=== PATIENT | male | born 1980 ===

== ENCOUNTER 2023-03-12 15:13 | Emergency (ER) | payer SELFPAY ==
[2023-03-12 15:32] VITALS: BP 129/73; PULSE 129; RESP 16; TEMP 37.1; O2SAT 94; BMI 29.1
--- NOTE | 2023-03-12 15:43 | XRR_ITS ---
PROCEDURE INFORMATION: Exam: XR Chest Exam date and time: 03/12/2023 4:13 PM Age: 42 years old Clinical indication: Patient HX: Dyspnea; Cough TECHNIQUE: Imaging protocol: Radiologic exam of the chest. Views: 1 view. COMPARISON: No relevant prior studies available. FINDINGS: Lungs: Irregular opacities in the left lung base medially. Pleural spaces: Unremarkable. No pleural effusion. No pneumothorax. Heart/Mediastinum: Unremarkable. No cardiomegaly. Bones/joints: Unremarkable. XR/XR chest 1V portable [id number] IMPRESSION: Irregular opacities in the left lung base medially.
[2023-03-12 15:53] LABS: Basophils % 0.3 %; Eosinophils % 0.1 %; Hematocrit 46.2 % (37-53); Lymphocytes # 0.5 10^3/uL (0.8-4.8); Lymphocytes % 7.3 %; Mean Corpuscular HGB Conc 35.7 g/dL (30-55); Mean Corpuscular Hemoglobin 30.3 pg (27-33); Mean Corpuscular Volume 84.8 fl (82-101); Mean Platelet Volume 9.9 fL (7.4-10.4); Monocytes # 0.6 10^3/uL (0.2-0.9); Monocytes % 7.5 %; Neutrophils # 6.18 10^3/uL (1.8-7.7); Neutrophils % 84.5 %; Nucleated Red Blood Cells % 0 %; Platelet Count 170 10^3/cmm (157-399); Red Blood Count 5.45 10^6/uL (3.85-5.65); Red Cell Distribution Width 11.9 % (12.1-15.1); White Blood Count 7.31 10^3/uL (3.29-11.43)
--- NOTE | 2023-03-12 15:59 | ED_ITS ---
HPI - COVID 2 General: Chief Complaint: COVID symptoms Stated Complaint: Weakness Time Seen by Provider: 03/12/23 15:39 Source: patient Mode of arrival: ambulatory Triage information: Has fever, cough or shortness of breath . History of Present Illness: 42-year-old male presents emergency room complaint that his dizziness cough and congestion cough nonproductive denies any dysuria urgency or frequency denies any abdominal pain. No chest pain. MD complaint: has COVID symptoms COVID 19 common symptoms: positive fever(s), chills, cough, non-productive cough, dyspnea, fatigue, nasal congestion and nausea COVID 19 other sytmptoms: negative chest pain, requiring oxygen or respiratory distress Onset (ago): day(s) (2) Treatment prior to arrival: none COVID Results: 2 SARS-CoV-2 (PCR) Not detected (NOT DETECT) 03/12/23 16:10 Coronavirus Type 229E (PCR) Not detected (NOT DETECT) 03/12/23 16:10 Review of Systems 2 Const: Reports: fever(s), chills and fatigue ENMT: Reports: nasal congestion Card: Denies: chest pain Resp: Reports: dyspnea and non-productive cough GI: Reports: nausea : Denies: dysuria, urinary frequency or urinary urgency Musc: Denies: neck pain or back pain Skin/Breast: Denies: rash Physical Exam 2 Const: GENERAL APPEARANCE: cooperative and comfortable O RIENTATION/CONSCIOUSNESS: Yes awake, Yes oriented to person, Yes oriented to place and Yes oriented to time HENMT: COMMON NORMALS: normocephalic, atraumatic and hearing grossly normal bilaterally HEAD & SCALP: normocephalic and atraumatic Resp: COMMON NORMALS: normal respiratory effort, No retractions and No use of accessory muscles AUSCULTATION: rhonchi left lower Cardio: COMMON NORMALS: regular rate, regular rhythm and No murmurs present (Cardio) RATE: regular rate RHYTHM: regular rhythm GI: COMMON NORMALS: Soft to palpation and No hepatosplenomegaly present A USCULTATION: Yes normoactive bowel sounds PALPATION: Yes Soft to palpation, No Tenderness to palpation present (GI), No Guarding due to palpation present (GI) and Yes No hepatosplenomegaly present Extremity: COMMON NORMALS: normal to inspection, capillary refill normal, no clubbing, cyanosis or edema, no calf tenderness and no pedal edema Neuro: SENSORIUM/ORIENTATION: Yes oriented to person, Yes oriented to place and Yes oriented to time Skin: COMMON NORMALS: no rashes or lesions noted GENERAL SKIN EXAM: no rashes or lesions noted Course 2 Vital Signs: Vital signs: Vital Signs Temperature 98.7 F 03/12/23 17:31 Pulse Rate 129 H 03/12/23 17:31 Respiratory Rate 16 03/12/23 17:31 Blood Pressure 129/73 03/12/23 17:31 Pulse Oximetry 94 03/12/23 17:31 Oxygen Delivery Me thod Room Air 03/12/23 15:32 MDM - COVID Medical Decision Making Influenza B positive. He is outside the window for antivirals. Findings on chest x-ray likely secondary to his influenza oxygen saturations at this time. Spportive care follow-up as needed Differential Diagnosis Likely COVID 19, influenza, other viral infection and pneumonia Medical Records I reviewed the patient's medical records. Lab Data I reviewed the patient's lab results. 03/12/23 15:45 03/12/23 15:45 Radiology Impressions Chest X-Ray 03/12/23 15:43 IMPRESSION: Irregular opacities in the left lung base medially. Laboratory Results WBC 7.31 10^3/uL (3.29-11.43) 03/12/23 15:45 RBC 5.45 10^6/uL (3.85-5.65) 03/12/23 15:45 Hgb 16.50 g/dL (11.27-16.99) 03/12/23 15:45 Hct 46.2 % (37-53) 03/12/23 15:45 MCV 84.8 fl (82-101) 03/12/23 15:45 MCH 30.3 pg (27-33) 03/12/23 15:45 MCHC 35.7 g/dL (30-55) 03/12/23 15:45 RDW 11.9 % (12.1-15.1) L 03/12/23 15:45 Plt Count 170 10^3/cmm (157-399) 03/12/23 15:45 MPV 9.9 fL (7.4-10.4) 03/12/23 15:45 Neut % (Auto) 84.5 % 03/12/23 15:45 Lymph % (Auto) 7.3 % 03/12/23 15:45 [place] % (Auto) 7.5 % 03/12/23 15:45 Eos % (Auto) 0.1 % 03/12/23 15:45 Baso % (Auto) 0.3 % 03/12/23 15:45 Neut # (Auto) 6.18 10^3/uL (1.8-7.7) 03/12/23 15:45 Lymph # (Auto) 0.5 10^3/uL (0.8-4.8) L 03/12/23 15:45 [place] # (Auto) 0.6 10^3/uL (0.2-0.9) 03/12/23 15:45 Eos # (Auto) 0.0 10^3/uL (0.0-0.8) 03/12/23 15:45 Baso # (Auto) 0.0 10^3/uL (0.0-0.1) 03/12/23 15:45 Nucleated RBC % (auto) 0 % 03/12/23 15:45 Nucleated RBCs # 0.0 /100WBC 03/12/23 15:45 Sodium 133 mmol/L (136-145) L 03/12/23 15:45 Potassium 3.3 mmol/L (3.5-5.1) L 03/12/23 15:45 Chloride 98 mmol/L (98-107) 03/12/23 15:45 Carbon Dioxide 25 mmol/L (22-29) 03/12/23 15:45 Anion Gap 13.3 (5-19) 03/12/23 15:45 BUN 11 mg/dL (6-20) 03/12/23 15:45 Creatinine 1.0 mg/dL (0.7-1.2) 03/12/23 15:45 GFR Calculation 82.3 mL/min (90-130) L 03/12/23 15:45 Glucose 124 mg/dL (65-115) H 03/12/23 15:45 Calculated Osmolality 277 mOsm/kg (285-295) L 03/12/23 15:45 Calcium 9.1 mg/dL (8.5-10.5) 03/12/23 15:45 Total Bilirubin 0.6 mg/dL (0.15-1.2) 03/12/23 15:45 AST 37 U/L (0-40) 03/12/23 15:45 ALT 56 U/L (0-41) H 03/12/23 15:45 Alkaline Phosphatase 173 U/L (40-130) H 03/12/23 15:45 Total Protein 8.1 g/dL (6.6-8.7) 03/12/23 15:45 Albumin 4.6 g/dL (3.5-5.2) 03/12/23 15:45 Globulin 3.5 g/dL (1.3-4.6) 03/12/23 15:45 Coronavirus 229E (PCR) Not detected (NOT DETECT) 03/12/23 16:10 Influenza A (H1) PCR Not detected (NOT DETECT) 03/12/23 18:03 Influ A (H1/09) PCR Not detected (NOT DETECT) 03/12/23 18:03 Influenza A (H3) PCR Not detected (NOT DETECT) 03/12/23 18:03 Influenza Type A Ag negative (Negative) 03/12/23 16:10 Influenza Type A (PCR) Not detected (NOT DETECT) 03/12/23 18:03 Influenza Type B Ag positive (Negative) H 03/12/23 16:10 Influenza Type B (PCR) Detected (NOT DETECT) A 03/12/23 18:03 SARS-CoV-2 (PCR) Not detected (NOT DETECT) 03/12/23 16:10 2 SARS-CoV-2 (PCR) Not detected (NOT DETECT) 03/12/23 16:10 Coronavirus Type 229E (PCR) Not detected (NOT DETECT) 03/12/23 16:10 All radiology interpretation(s) finalized by discharge Discharge Plan Discharge Patient Disposition: Home Clinical Impression: Influenza B Condition: Stable Discharge Orders: Discharge ED (Routine); Ordered 03/12/23 Ordered By: Mj Dumas Discharge Diet: Usual diet Discharge Activity: Increase activity as tolerated Patient Instructions: Influenza (ED), Opioid Safety, Pain Management Activity Restrictions/Additional Instructions: Thank you for choosing [facility] for your healthcare needs today. Please realize this is an emergency room and that we are providing you with a medical screening exam and this may not be complete and all inclusive of all the testing and or work up that you may need to determine your ailment or severity of your illness. It is very important that you follow up as instructed or that you return to the Emergency Department should you have concerns or if your condition changes or worsens in any way. Print Language: Uruguayan Coding Level of Care Code ED Middleware Developer for Jenni Tapia
[2023-03-12 16:10] LABS: Alanine Aminotransferase 56 U/L (0-41); Albumin Level 4.6 g/dL (3.5-5.2); Alkaline Phosphatase 173 U/L (40-130); Anion Gap 13.3 (5-19); Aspartate Amino Transferase 37 U/L (0-40); Blood Urea Nitrogen 11 mg/dL (6-20); Calcium 9.1 mg/dL (8.5-10.5); Carbon Dioxide 25 mmol/L (22-29); Chloride 98 mmol/L (98-107); Globulin 3.5 g/dL (1.3-4.6); Glomerular Filtration Rate 82.3 mL/min (90-130); Glucose 124 mg/dL (65-115); Osmolality Calculated 277 mOsm/kg (285-295); Potassium 3.3 mmol/L (3.5-5.1); Sodium 133 mmol/L (136-145); Total Bilirubin 0.6 mg/dL (0.15-1.2); Total Protein 8.1 g/dL (6.6-8.7)
[2023-03-12 16:25] LABS: Influenza A by IFA negative (Negative); Influenza B by IFA positive (Negative)
[2023-03-12 17:31] VITALS: BP 129/73; PULSE 129; RESP 16; TEMP 37.1; O2SAT 94
[2023-03-12 17:55] LABS: Adenovirus Not Detected (NOT DETECT); Chlamydia Pneumoniae Not Detected (NOT DETECT); Coronavirus 229E,HKU1,NL63,OC4 Not Detected (NOT DETECT); Human Metapneumovirus Not Detected (NOT DETECT); Human Rhinovirus/Enterovirus Not Detected (NOT DETECT); Influenza A Not Detected (NOT DETECT); Influenza A H1 Not Detected (NOT DETECT); Influenza A H1-2009 Not Detected (NOT DETECT); Influenza A H3 Not Detected (NOT DETECT); Influenza B Detected (NOT DETECT); Mycoplasma Pneumoniae Not Detected (NOT DETECT); Parainfluenza Virus Type 1 Not Detected (NOT DETECT); Parainfluenza Virus Type 2 Not Detected (NOT DETECT); Parainfluenza Virus Type 3 Not Detected (NOT DETECT); Parainfluenza Virus Type 4 Not Detected (NOT DETECT); Respiratory Syncytial Virus A Not Detected (NOT DETECT); Respiratory Syncytial Virus B Not Detected (NOT DETECT); SARS-COV-2 Not Detected (NOT DETECT)
[2023-03-12 18:04] LABS: Influenza A Not Detected (NOT DETECT); Influenza A H1 Not Detected (NOT DETECT); Influenza A H1-2009 Not Detected (NOT DETECT); Influenza A H3 Not Detected (NOT DETECT); Influenza B Detected (NOT DETECT); Results from Genmark
== END 2023-03-12 17:32 | disposition home or self-care (01) ==
PROVIDERS: Emergency Provider Family Medicine
DX: J10.1 Influenza due to other identified influenza virus with other respiratory manifestations (principal); Z11.52 Encounter for screening for COVID-19
CPT/HCPCS: 36415; 71045; 80053; 85025; 87040; 87631; 87635; 87804; 99284

== ENCOUNTER 2023-12-12 20:15 | Emergency (ER) | payer SELFPAY ==
[2023-12-12 20:16] VITALS: BP 150/91; PULSE 76; RESP 18; TEMP 36.9; O2SAT 98; BMI 29.5
--- NOTE | 2023-12-12 21:36 | XRR_ITS ---
PROCEDURE INFORMATION: Exam: XR Chest Exam date and time: 12/12/2023 9:39 PM Age: 43 years old Clinical indication: Other: Dizzy; Additional info: Dizziness TECHNIQUE: Imaging protocol: Radiologic exam of the chest. Views: 1 view. COMPARISON: CR XR chest 1V portable [id number] 03/12/2023 4:13 PM FINDINGS: Lungs: No consolidation. Pleural spaces: No pleural effusion. No pneumothorax. Heart/Mediastinum: No cardiomegaly. Bones/joints: No acute findings. XR/XR chest 1V portable [id number] IMPRESSION: No acute chest findings.
--- NOTE | 2023-12-12 21:36 | ECG_ITS ---
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 Measurements Intervals [place] Rate: 87 P: 12 ID: 128 QRS: 3 QRSD: 87 T: 4 QT: 330 QTc: 398 Interpretive Statements SINUS RHYTHM MINIMAL VOLTAGE CRITERIA FOR LVH, CONSIDER NORMAL VARIANT [MEETS CRITERIA IN ONE OF: R(aVL), S(V1), R(V5), R(V5/V6)+S(V1)] No previous ECG available for comparison Electronically Signed On 12-13-2023 01:26:07 CDT by Mario Gant M.D. [id number]
--- NOTE | 2023-12-12 22:02 | ED_ITS ---
HPI - Dizziness 2 General: Chief Complaint: Dizziness Stated Complaint: Dizziness,Headaces Time Seen by Provider: 12/12/23 21:33 History of Present Illness: HPI Narrative: Patient presents to the ER complaining of lightheaded and dizziness as well as a headache and bilateral feet pain said he has been going off and on for several months but he is getting worse the last 3 to 4 days. Patient denies any drug use, medication use, allergies, surgeries, he states he otherwise is healthy Related Data Previous Rx's Medication Instructions Recorded meclizine 25 mg tablet 25 mg PO TID PRN dizziness #30 tabs 12/13/23 Allergies Allergy/AdvReac Type Severity Reaction Status Date / Time No Known Allergies Allergy Verified 03/12/23 15:32 Review of Systems 2 General: Reports: 10 or more systems reviewed and unremarkable except in HPI and below Physical Exam 2 Const: COMMON NORMALS: no acute distress, average body habitus, patient oriented x3, no limitations, healthy appearing, alert and well nourished HENMT: COMMON NORMALS: normocephalic, atraumatic, hearing grossly normal bilaterally, external ears normal, Normal external nose present and moist oral mucous membranes HEAD & SCALP: normocephalic and atraumatic NOSE: Normal external nose present EXTERNAL EAR: Yes external ears normal Neck/C-Spine: COMMON NORMALS: full ROM, no lymphadenopathy, supple, no meningeal signs, no JVD and Thyroid normal THYROID: Thyroid normal Chest: COMMONS NORMALS: normal inspection of the chest and normal palpation of entire chest wall Resp: COMMON NORMALS: normal respiratory effort, No retractions, No use of accessory muscles and clear to auscultation bilaterally AUSCULTATION: clear to auscultation bilaterally Cardio: COMMON NORMALS: no JVD, regular rate, regular rhythm, S1 normal heart sound present, S2 normal heart sound present, No gallops present (Cardio), No clicks present (Cardio), No murmurs present (Cardio) and No rub (Cardio) R ATE: regular rate RHYTHM: regular rhythm HEART SOUNDS: S1 normal heart sound present and S2 normal heart sound present GI: COMMON NORMALS: Normal to inspection, nondistended, normoactive bowel sounds present, Soft to palpation, non-tender, No hepatosplenomegaly present and no masses PALPATION: Yes Soft to palpation and Yes No hepatosplenomegaly present Neuro: COMMON NORMALS: patient oriented x3 SENSORIUM/ORIENTATION: Yes alert MENINGEAL SIGNS: Yes no meningeal signs Course 2 Vital Signs: Vital signs: Vital Signs Temperature 98.4 F 12/12/23 20:16 Pulse Rate 75 12/12/23 23:51 Respiratory Rate 18 12/12/23 20:16 Blood Pressure 125/83 12/12/23 23:51 Pulse Oximetry 97 12/12/23 23:51 Oxygen Delivery Me thod Room Air 12/12/23 23:51 MDM - Dizziness Medical Decision Making Number was obtained included CBC CMP urinalysis chest x-ray, head CT all of which was essentially benign. Patient be discharged home with diagnosis of vertigo. Medical Records I reviewed the patient's medical records. Lab Data I reviewed the patient's lab results. 12/12/23 22:05 12/12/23 22:05 Radiology Impressions Chest X-Ray 12/12/23 21:36 IMPRESSION: No acute chest findings. Head CT 12/13/23 00:04 IMPRESSION: No acute intracranial findings. Laboratory Results WBC 5.85 10^3/uL (3.29-11.43) 12/12/23 22:05 RBC 5.18 10^6/uL (3.85-5.65) 12/12/23 22:05 Hgb 16.20 g/dL (11.27-16.99) 12/12/23 22:05 Hct 46.1 % (37-53) 12/12/23 22:05 MCV 89.0 fl (82-101) 12/12/23 22:05 MCH 31.3 pg (27-33) 12/12/23 22:05 MCHC 35.1 g/dL (30-55) 12/12/23 22:05 RDW 11.9 % (12.1-15.1) L 12/12/23 22:05 Plt Count 208 10^3/cmm (157-399) 12/12/23 22:05 MPV 10.2 fL (7.4-10.4) 12/12/23 22:05 Neut % (Auto) 59.4 % 12/12/23 22:05 Lymph % (Auto) 32.1 % 12/12/23 22:05 [place] % (Auto) 6.7 % 12/12/23 22:05 Eos % (Auto) 1.2 % 12/12/23 22:05 Baso % (Auto) 0.3 % 12/12/23 22:05 Neut # (Auto) 3.47 10^3/uL (1.8-7.7) 12/12/23 22:05 Lymph # (Auto) 1.9 10^3/uL (0.8-4.8) 12/12/23 22:05 [place] # (Auto) 0.4 10^3/uL (0.2-0.9) 12/12/23 22:05 Eos # (Auto) 0.1 10^3/uL (0.0-0.8) 12/12/23 22:05 Baso # (Auto) 0.0 10^3/uL (0.0-0.1) 12/12/23 22:05 Nucleated RBC % (auto) 0 % 12/12/23 22:05 Nucleated RBCs # 0.0 /100WBC 12/12/23 22:05 Sodium 138 mmol/L (136-145) 12/12/23 22:05 Potassium 3.5 mmol/L (3.5-5.1) 12/12/23 22:05 Chloride 103 mmol/L (98-107) 12/12/23 22:05 Carbon Dioxide 23 mmol/L (22-29) 12/12/23 22:05 Anion Gap 15.5 (5-19) 12/12/23 22:05 BUN 16 mg/dL (6-20) 12/12/23 22:05 Creatinine 0.8 mg/dL (0.7-1.2) 12/12/23 22:05 GFR Calculation 106.0 mL/min (90-130) 12/12/23 22:05 Glucose 104 mg/dL (65-115) 12/12/23 22:05 Calculated Osmolality 287 mOsm/kg (285-295) 12/12/23 22:05 Calcium 8.6 mg/dL (8.5-10.5) 12/12/23 22:05 Total Bilirubin 0.5 mg/dL (0.15-1.2) 12/12/23 22:05 AST 16 U/L (0-40) 12/12/23 22:05 ALT 15 U/L (0-41) 12/12/23 22:05 Alkaline Phosphatase 136 U/L (40-130) H 12/12/23 22:05 Total Protein 7.2 g/dL (6.6-8.7) 12/12/23 22:05 Albumin 4.7 g/dL (3.5-5.2) 12/12/23 22:05 Globulin 2.5 g/dL (1.3-4.6) 12/12/23 22:05 Urine Color Yellow (Yellow) 12/12/23 23:40 Urine Appearance Clear (CLEAR) 12/12/23 23:40 Urine pH 6.5 (5-7) 12/12/23 23:40 Ur Specific [place] 1.026 (1.005-1.030) 12/12/23 23:40 Urine Protein Negative (Negative) 12/12/23 23:40 Urine Glucose (UA) Negative (Normal) 12/12/23 23:40 Urine Ketones Negative (Negative) 12/12/23 23:40 Urine Blood Negative (Negative) 12/12/23 23:40 Urine Nitrate Negative (Negative) 12/12/23 23:40 Urine Bilirubin Negative (Negative) 12/12/23 23:40 Urine Urobilinogen 1.0 mg/dL (Negative) 12/12/23 23:40 Ur Leukocyte Esterase Negative (Negative) 12/12/23 23:40 Urine RBC 0-2 /hpf (0-2) 12/12/23 23:40 Urine WBC 0-5 /hpf (0-5) 12/12/23 23:40 Ur Squamous Epith Cells 0-5 /hpf (0-5) 12/12/23 23:40 Amorphous Sediment Not Reportable 12/12/23 23:40 Urine Bacteria None seen /hpf (NONE) 12/12/23 23:40 Hyaline Casts 0-4 /lpf H 12/12/23 23:40 All radiology interpretation(s) finalized by discharge Discharge Plan Discharge Patient Disposition: Home Clinical Impression: Vertigo Condition: Stable Prescriptions: New meclizine 25 mg tablet 25 mg PO TID PRN (Reason: dizziness) Qty: 30 0RF Discharge Orders: Discharge ED (Routine); Ordered 12/13/23 Ordered By: David Pratt Patient Instructions: Vertigo (DC) Activity Restrictions/Additional Instructions: Your evaluation ER did not show any acute cause of your dizziness. It is thought to be vertigo. You have been prescribed meclizine to use as needed to see if this improves her dizziness. Otherwise follow-up with your family practitioner in the next 7 days for further evaluation and treatment. Coding Level of Care Code ED Vice President Of Marketing for Jenni Tapia
[2023-12-12 22:12] LABS: Basophils % 0.3 %; Eosinophils # 0.1 10^3/uL (0.0-0.8); Eosinophils % 1.2 %; Hematocrit 46.1 % (37-53); Lymphocytes # 1.9 10^3/uL (0.8-4.8); Lymphocytes % 32.1 %; Mean Corpuscular HGB Conc 35.1 g/dL (30-55); Mean Corpuscular Hemoglobin 31.3 pg (27-33); Mean Platelet Volume 10.2 fL (7.4-10.4); Monocytes # 0.4 10^3/uL (0.2-0.9); Monocytes % 6.7 %; Neutrophils # 3.47 10^3/uL (1.8-7.7); Neutrophils % 59.4 %; Nucleated Red Blood Cells % 0 %; Platelet Count 208 10^3/cmm (157-399); Red Blood Count 5.18 10^6/uL (3.85-5.65); Red Cell Distribution Width 11.9 % (12.1-15.1); White Blood Count 5.85 10^3/uL (3.29-11.43)
[2023-12-12 22:33] LABS: Alanine Aminotransferase 15 U/L (0-41); Albumin Level 4.7 g/dL (3.5-5.2); Alkaline Phosphatase 136 U/L (40-130); Aspartate Amino Transferase 16 U/L (0-40); Blood Urea Nitrogen 16 mg/dL (6-20); Calcium 8.6 mg/dL (8.5-10.5); Carbon Dioxide 23 mmol/L (22-29); Chloride 103 mmol/L (98-107); Creatinine Clr Calc Pharmacy 109.4442; Globulin 2.5 g/dL (1.3-4.6); Glucose 104 mg/dL (65-115); Osmolality Calculated 287 mOsm/kg (285-295); Sodium 138 mmol/L (136-145); Total Bilirubin 0.5 mg/dL (0.15-1.2); Total Protein 7.2 g/dL (6.6-8.7)
[2023-12-12 22:38] LABS: Anion Gap 15.5 (5-19); Potassium 3.5 mmol/L (3.5-5.1)
[2023-12-12 23:51] VITALS: BP 125/83; PULSE 75; O2SAT 97
[2023-12-12 23:57] LABS: Bilirubin Urine Negative (Negative); Blood Urine Negative (Negative); Glucose Urine UA Negative (Normal); Ketones Urine Negative (Negative); Leukocyte Esterase Urine Negative (Negative); Nitrate Urine Negative (Negative); Protein Urine Negative (Negative); Specific Gravity, Urine 1.026 (1.005-1.030); Urine Appearance Clear (CLEAR); Urine Color Yellow (Yellow); pH Urine 6.5 (5-7)
[2023-12-13] VITALS: BP 131/86; PULSE 65; O2SAT 96
[2023-12-13 00:02] LABS: Add Urine Microscopic? YES; Bacteria Urine None Seen /hpf; Hyaline Casts Urine 0-4 /lpf; RBC Urine 0-2 /hpf (0-2); Squamous Epithelial Cell Urine 0-5 /hpf (0-5); WBC Urine 0-5 /hpf (0-5)
--- NOTE | 2023-12-13 00:04 | CTR_ITS ---
PROCEDURE INFORMATION: Exam: CT Head Without Contrast Exam date and time: 12/13/2023 12:15 AM Age: 43 years old Clinical indication: Pain; Dizziness; Headache; Migraine; Aura effect not specified; Does not respond to medication; Additional info: Headache dizziness TECHNIQUE: Imaging protocol: Computed tomography of the head without contrast. Radiation optimization: All CT scans at this facility use at least one of these dose optimization techniques: automated exposure control; mA and/or kV adjustment per patient size (includes targeted exams where dose is matched to clinical indication); or iterative reconstruction. COMPARISON: No relevant prior studies available. RADIATION DOSE METRICS: Total DLP (mGy-cm): 1083.37 FINDINGS: Brain: No hemorrhage. No mass effect or midline shift. No significant white matter disease. Cerebral ventricles: No ventriculomegaly. Paranasal sinuses: Visualized sinuses are unremarkable. No fluid levels. Mastoid air cells: Visualized mastoid air cells are well aerated. Bones: Unremarkable. No acute fracture. Soft tissues: Unremarkable. CT/CT head wo con* [id number] IMPRESSION: No acute intracranial findings.
[2023-12-13 01:00] VITALS: BP 126/83; PULSE 97; O2SAT 97
[2023-12-13 01:44] VITALS: BP 124/74; PULSE 69; O2SAT 97
== END 2023-12-13 01:18 | disposition home or self-care (01) ==
PROVIDERS: Emergency Provider Emergency Medicine
DX: R42 Dizziness and giddiness (principal)
CPT/HCPCS: 36415; 70450; 71045; 80053; 81001; 85025; 93005; 99285